=== PATIENT | female | born 1995 | race Hispanic/Latino ===

== ENCOUNTER 2016-07-13 10:20 | Outpatient (CLI) | payer BC ==
[2016-07-13 11:18] LABS: ALT (SGPT) 29 U/L (0-55); AST (SGOT) 28 U/L (5-34); Alkaline Phosphatase 68 U/L (40-150); Anion Gap 13 mmol/L (10-20); BUN (Urea Nitrogen) 11 mg/dL (7.0-18.7); Bilirubin, Total 0.5 mg/dL (0.2-1.2); Calc. Creatinine Clearance 0 mL/min (70-130); Calcium 9.5 mg/dL (7.8-10.44); Carbon Dioxide 25 mmol/L (22-29); Chloride 109 mmol/L (98-107); Estimated GFR-MDRD 84; Globulin 3.1 g/dL (2.4-3.5); Protein, Total 7.2 g/dL (6.0-8.3)
[2016-07-13 11:38] LABS: #Basophils 0.1 thou/uL (0.0-0.2); #Eosinphils 0.5 thou/uL (0.0-0.7); #Monocytes 0.6 thou/uL (0.11-0.59); #Neutrophils 4.6 thou/uL (1.40-6.50); %Basophils 0.9 % (0.0-1.0); %Eosinophils 6.2 % (0.0-10.0); %Monocytes 7.1 % (0.0-10.0); Hematocrit 43.1 % (36.0-47.0); Mean Platelet Volume 7.8 fL (7.4-10.4); Red Blood Cell (RBC) Count 4.95 mill/uL (4.20-5.40); White Blood Cell (WBC) Count 7.7 thou/uL (4.8-10.8)
== END 2016-07-13 10:21 | disposition home or self-care (01) ==
LOC: HPCALD 10:20
PROVIDERS: ATTEND Physician Assistant
DX: F39 Unspecified mood [affective] disorder (principal)
CPT/HCPCS: 36415; 80053; 84443; 85025

== ENCOUNTER 2016-11-24 16:03 | Outpatient (CLI) | payer BC ==
[2016-11-24 16:59] LABS: ALT (SGPT) 36 U/L (8-55); AST (SGOT) 22 U/L (5-34); Albumin 4.2 g/dL (3.5-5.0); Alkaline Phosphatase 67 U/L (40-150); Bilirubin, Direct 0.2 mg/dL (0.1-0.3); Bilirubin, Total 0.4 mg/dL (0.2-1.2); Protein, Total 7.4 g/dL (6.0-8.3)
== END 2016-11-24 16:04 | disposition home or self-care (01) ==
LOC: HPCALD 16:03
PROVIDERS: ATTEND Physician Assistant
DX: B35.1 Tinea unguium (principal)
CPT/HCPCS: 36415; 80076

== ENCOUNTER 2019-08-19 15:53 | Emergency (ER) | payer BC, OTHER ==
[2019-08-19] MEDS ORDERED: Lidocaine 1% PF 5 ML VIAL ONE (16:48)
--- NOTE | 2019-08-19 19:10 | RAD ---
RIGHT GREAT TOE THREE VIEWS: Date: 08-19-2019 FINDINGS: There is a fracture at the base of the distal phalanx of the great toe on the lateral side of the IP joint. Displacement is minimal. The remainder of the toe appears intact. The lateral sesamoid of the first MTP joint is bipartite, a common finding. IMPRESSION: Distal phalanx fracture at the IP joint. Code T POS: HOME
== END 2019-08-19 17:40 | disposition home or self-care (01) ==
LOC: BURERS 15:53
DX: S92.421A Displaced fracture of distal phalanx of right great toe, initial encounter for closed fracture (principal); S91.211A Laceration without foreign body of right great toe with damage to nail, initial encounter; X58.XXXA Exposure to other specified factors, initial encounter
CPT/HCPCS: 11760; 90471; J2001

== ENCOUNTER 2020-02-25 17:30 | Outpatient (CLI) | payer BC ==
--- NOTE | 2020-02-25 18:59 | RAD ---
RIGHT HAND THREE VIEWS: 02/25/20 No fracture, recent or remote was appreciated. The bones and joints all appeared intact. The only que stionable line was in the distal phalanx of the ring finger near the terminal tuft. This should be co rrelated with the exact site of pain. IMPRESSION: No definite acute finding. POS: HOME
--- NOTE | 2020-02-25 19:18 | RAD ---
RIGHT RING FINGER: 02/25/20 No major fracture was visible. There is one longitudinal line in the terminal tuft of the distal phal anx of the ring finger that could be an old fracture, though I believe it is more likely a trabecular marking of sorts. The joints all appeared intact. IMPRESSION: No definite traumatic findings. See above. POS: HOME
== END 2020-02-25 17:31 | disposition home or self-care (01) ==
LOC: BURRAD 17:30
PROVIDERS: ATTEND Physician Assistant
DX: S69.91XA Unspecified injury of right wrist, hand and finger(s), initial encounter (principal); M79.89 Other specified soft tissue disorders; M79.644 Pain in right finger(s)

== ENCOUNTER 2021-11-11 09:51 | Outpatient (CLI) | payer BC, OTHER | END 2021-11-11 09:52 | disposition home or self-care (01) | LOC: BUREKG 09:51 | PROVIDERS: ATTEND Physician Assistant | DX: R00.2 Palpitations (principal) | CPT/HCPCS: 93005; 93010 ==